=== PATIENT | female | born 2000 | race Hispanic/Latino ===

== ENCOUNTER 2023-01-16 09:10 | Inpatient (IN) | payer BC, MEDICAID, SELFPAY ==
[2023-01-21] MEDS ORDERED: Ondansetron PF 4 MG/2 ML Vial IVP PRN (03:28)
[2023-01-21] MEDS ORDERED: Methylergonovine 0.2 MG/ML VIAL IM PRN (03:28)
[2023-01-21] MEDS ORDERED: Ibuprofen 800 MG TAB PO PRN (03:28)
[2023-01-21] MEDS ORDERED: Acetaminophen 500 MG TAB PO PRN (03:28)
[2023-01-21] MEDS ORDERED: Carboprost 250 MCG/ML AMP IM PRN (03:28)
[2023-01-21] MEDS ORDERED: Tranexamic Acid 1,000 MG/10 ML VIAL IVP PRN (03:28)
[2023-01-21] MEDS ORDERED: Lactated Ringer's 1,000 ML IV SCH (03:28)
[2023-01-21] MEDS ORDERED: Butorphanol Tartrate 1 MG/ML VIAL SLOW IVP PRN (03:28)
[2023-01-21] MEDS ORDERED: Misoprostol 200 MCG TAB PR PRN (03:28)
[2023-01-21] MEDS ORDERED: HYDROcodone/Acetaminophen 5/325 mg Tablet PO PRN (03:28)
[2023-01-21] MEDS ORDERED: Diphenoxylate HCl/Atropine Tablet PO PRN (03:28)
[2023-01-21] MEDS ORDERED: hydrALAZINE 20 MG/ML VIAL SLOW IVP PRN (03:28)
[2023-01-21] MEDS ORDERED: Promethazine HCl 25 MG/ML VIAL IM PRN (03:28)
[2023-01-21] MEDS ORDERED: Lidocaine 1% (PF) 30 ML VIAL SC PRN (03:28)
[2023-01-21] MEDS ORDERED: NS w/ Oxytocin 30 units 500 ML IV SCH ×3 (03:28)
[2023-01-21 03:30] VITALS: BMI 26.6
[2023-01-21] MEDS: Misoprostol 100 MCG TAB VAG SCH (03:54)
[2023-01-21 03:55] LABS: Hemoglobin 11.5 g/dL (12.0-15.5); Mean Corpuscular HGB CONC 32.2 g/dL (32.0-36.0); Mean Corpuscular Hemoglobin 27.8 pg (27.0-33.0); Mean Corpuscular Volume 86.4 fl (81.6-98.3); Mean Platelet Volume 11.2 fl (7.4-10.4); Platelet Count 208 10x3/uL (150-450); RBC Distribution Width 14.2 % (11.5-14.5); Red Blood Cell (RBC) Count 4.13 10x6/uL (3.90-5.03); White Blood Cell (WBC) Count 7.4 10x3/uL (3.5-10.5)
[2023-01-21 04:21] LABS: HBSAg Index 0.12 S/CO (0-0.99); Hep B Surf Ag - L&D Non-Reactive S/CO (NonReactive)
[2023-01-21 04:22] LABS: Syphilis Antibody Nonreactive (Nonreactive); Syphilis Antibody Index 0.03 S/CO (<1.00 Non-Reactive)
[2023-01-21] MEDS ORDERED: ePHEDrine Sulfate 50 MG/10 ML VIAL ONE (08:00)
[2023-01-21] MEDS: Fentanyl 100 MCG/2 ML VIAL SLOW IVP PRN ×2 (10:48→14:11)
[2023-01-21] MEDS ORDERED: Fentanyl 2 mcg/Bup 0.1% Cadd 100 ML ONE (11:30)
[2023-01-22] MEDS ORDERED: HYDROcodone/Acetaminophen 5/325 mg Tablet PO PRN (06:25)
[2023-01-22] MEDS ORDERED: Bisacodyl 10 MG SUPP PR PRN (06:25)
[2023-01-22] MEDS ORDERED: Benzocaine-Menthol 82.5 ML CAN TOP PRN (06:25)
[2023-01-22] MEDS ORDERED: Preparation H Ointment 28 GM TUBE PR PRN (06:25)
[2023-01-22] MEDS ORDERED: Promethazine HCl 25 MG/ML VIAL IM PRN (06:25)
[2023-01-22] MEDS ORDERED: Milk Of Magnesia 30 ML UDCUP PO PRN (06:25)
[2023-01-22] MEDS ORDERED: Lanolin Ointment 7 GM TUBE TOP PRN (06:25)
[2023-01-22] MEDS ORDERED: hydrALAZINE 20 MG/ML VIAL SLOW IVP PRN (06:25)
[2023-01-22] MEDS ORDERED: diphenhydrAMINE 25 MG CAP PO PRN (06:25)
[2023-01-22] MEDS ORDERED: Boostrix 0.5 ML (Tdap) VIAL (>/=7 yrs of age) IM ONE (06:25)
[2023-01-22] MEDS ORDERED: Ondansetron PF 4 MG/2 ML Vial IVP PRN (06:25)
[2023-01-22] MEDS ORDERED: Docusate 100 MG CAP PO SCH (07:00)
[2023-01-22] MEDS: Misoprostol 100 MCG TAB VAG SCH (07:25)
[2023-01-22] MEDS: Ferrous Sulfate 325 MG TAB PO SCH ×2 (07:27→16:58)
[2023-01-22] MEDS: Prenatal Vitamin 1 TAB PO SCH (09:29)
[2023-01-22] MEDS: Ibuprofen 800 MG TAB PO SCH ×2 (09:30→18:02)
[2023-01-22] MEDS: Docusate 100 MG CAP PO SCH (21:48)
[2023-01-23] MEDS: Ibuprofen 800 MG TAB PO SCH ×2 (01:42→10:28)
[2023-01-23 08:52] VITALS: BP 112/73; TEMP 98
[2023-01-23] MEDS: Prenatal Vitamin 1 TAB PO SCH (10:28)
[2023-01-23] MEDS: Docusate 100 MG CAP PO SCH (10:28)
[2023-01-23] MEDS: Ferrous Sulfate 325 MG TAB PO SCH (10:28)
== END 2023-01-23 11:50 | disposition home or self-care (01) | DRG 807 ==
LOC: CSHLD 01-21 02:41 → CSHPP 01-21 22:53
PROVIDERS: ADMIT Family Medicine; ATTEND Family Medicine
PROC: 10E0XZZ Delivery of Products of Conception, External Approach (ICD-10-PCS; principal; 2023-01-21)
PROC: 0KQM0ZZ Repair Perineum Muscle, Open Approach (ICD-10-PCS; 2023-01-21)
PROC: 10907ZC Drainage of Amniotic Fluid, Therapeutic from Products of Conception, Via Natural or Artificial Opening (ICD-10-PCS; 2023-01-21)
PROC: 3E0P7VZ Introduction of Hormone into Female Reproductive, Via Natural or Artificial Opening (ICD-10-PCS; 2023-01-21)
DX: O48.0 Post-term pregnancy (principal); Z37.0 Single live birth; Z3A.40 40 weeks gestation of pregnancy; Z79.899 Other long term (current) drug therapy; O70.1 Second degree perineal laceration during delivery
CPT/HCPCS: 36415; 51702; 85027; 86780; 86850; 86900; 86901; 87340; J2590; J3010; J7120